=== PATIENT | female | born 1980 | race Two or more races ===

== ENCOUNTER 2021-07-19 15:22 | Emergency (ER) | payer MEDICAID ==
[~2021-07-19] VITALS: Ht 162.6 cm; Wt 104.3 kg
[2021-07-19 15:33] VITALS: BP 102/69
[2021-07-19 17:08] LABS: Basophils # (auto) 0 10 ^3/uL (0-0.2); Basophils % (auto) 0.2 % (0.0-2.0); Eosinophils # (auto) 0 10 ^3/uL (0-0.8); Hematocrit 47.6 % (36.0-46.0); Hemoglobin 15.4 g/dL (12.2-16.2); Lymphocytes # (auto) 1.1 10 ^3/uL (0.4-5.4); Lymphocytes % (auto) 20.3 % (10.0-50.0); Mean Corpuscular Hemoglobin 27.8 pg (28.0-32.0); Mean Corpuscular Hgb Conc. 32.4 g/dL (32.0-36.0); Mean Corpuscular Volume 85.8 fL (80.0-100.0); Monocytes # (auto) 0.3 10 ^3/uL (0-1.3); Monocytes % (auto) 5.9 % (0.0-12.0); Neutrophils % (auto) 73.6 % (37.0-80.0); Nucleated Red Blood Cells % 0.1 %; Red Blood Cells 5.55 10^6/uL (4.0-5.20); Red Cell Distribution Width 14.6 % (11.8-14.3); White Blood Cell 5.4 10^3/uL (4.4-10.8)
[2021-07-19] MEDS ORDERED: PRED20TA2 PO (20:31)
[2021-07-19] MEDS ORDERED: AZIT1POW12 PO (20:31)
[2021-07-19 21:01] LABS: BUN/Creatinine Ratio 13.1; Bilirubin, Total 0.3 mg/dL (0.2-1.0); Calcium 8.2 mg/dL (8.5-10.1); Total Protein 8.2 g/dL (6.4-8.2)
[2021-07-19 21:02] LABS: Albumin 3.6 g/dL (3.4-5.0)
== END 2021-07-19 19:51 | disposition left against medical advice (07) ==
LOC: ER 15:22
DX: U07.1 COVID-19 (principal)
CPT/HCPCS: 36415; 71045; 80053; 85025; 87426; 93005

== ENCOUNTER 2022-07-11 11:57 | Emergency (ER) | payer MEDICAID ==
[~2022-07-11] VITALS: Ht 160 cm; Wt 103.0 kg
[~2022-07-11 11:57] MED LIST: AZIT1POW12 PO; PRED20TA2 PO
[2022-07-11 11:58] VITALS: BP 103/59
== END 2022-07-11 15:15 | disposition left against medical advice (07) ==
LOC: ER 11:57
DX: R07.9 Chest pain, unspecified (principal); R06.02 Shortness of breath; M79.602 Pain in left arm; R05.9 Cough, unspecified; Z53.21 Procedure and treatment not carried out due to patient leaving prior to being seen by health care provider; Z20.822 Contact with and (suspected) exposure to COVID-19
CPT/HCPCS: 36415; 87426; 87804; 93005